=== PATIENT | male | born 1975 | race Caucasian/White ===

== ENCOUNTER 2019-04-15 11:54 | Outpatient (CLI) | payer OTHER, SELFPAY | END 2019-04-15 12:14 | PROVIDERS: PCP Student in an Organized Health Care Education/Training Program; Visit Provider Family Medicine | DX: R00.0 Tachycardia, unspecified (principal); R06.83 Snoring; Z87.898 Personal history of other specified conditions | CPT/HCPCS: 94762 ==

== ENCOUNTER 2019-04-16 01:06 | Outpatient (CLI) | payer OTHER, SELFPAY | END 2019-04-16 01:26 | PROVIDERS: PCP Student in an Organized Health Care Education/Training Program; Visit Provider Student in an Organized Health Care Education/Training Program | DX: R00.0 Tachycardia, unspecified (principal) | CPT/HCPCS: 93225 ==

== ENCOUNTER 2019-04-19 06:21 | Outpatient (CLI) | payer OTHER, SELFPAY | END 2019-04-19 06:41 | PROVIDERS: PCP Student in an Organized Health Care Education/Training Program; Visit Provider Student in an Organized Health Care Education/Training Program | DX: R00.0 Tachycardia, unspecified (principal) ==

== ENCOUNTER 2019-04-19 08:20 | Outpatient (CLI) | payer OTHER, SELFPAY ==
--- NOTE | 2019-04-19 09:26 | W.HOLTRPT ---
Date of service: 04/19/19 Time of Service: 09:26 Holter Monitor Report Holter Monitor Note: There is a 2-day Holter monitor ordered for the indication of tachycardia. ?Patient was in normal sinus rhythm for majority of the recording. (Minimum heart rate 66 bpm?maximal heart rate 138 bpm) ?The patient's heart rate was over 100 bpm 32% of the time and appropriately decreased during the nocturnal hours. ?There were no episodes of supraventricular tachycardia and no significant premature atrial contractions. ?There were no episodes of ventricular tachycardia and one single ventricular ectopic beat. ?There are no episodes of atrial fibrillation no pauses greater than 3 seconds and no evidence of high degree heart block.
== END 2019-04-19 08:40 ==
PROVIDERS: PCP Student in an Organized Health Care Education/Training Program; Visit Provider Student in an Organized Health Care Education/Training Program
DX: R00.0 Tachycardia, unspecified (principal)
CPT/HCPCS: 93226

== ENCOUNTER 2019-04-22 08:30 | Outpatient (CLI) | payer OTHER, SELFPAY | END 2019-04-22 08:50 | PROVIDERS: PCP Student in an Organized Health Care Education/Training Program; Visit Provider Internal Medicine Cardiovascular Disease | DX: R00.0 Tachycardia, unspecified (principal); R07.89 Other chest pain | CPT/HCPCS: 93005; 93010 ==

== ENCOUNTER 2019-04-23 12:58 | Outpatient (CLI) | payer OTHER, SELFPAY ==
--- NOTE | 2019-05-11 08:29 | W.ZIOMONITOR ---
Date of service: 05/11/19 Time of Service: 08:29 [facility]IO Patch [facility] Operations Supervisor Note: This was a ZIO patch recorded for 13 days and 15 hours. Rhythm throughout was sinus. Average heart rate was 87 bpm. Minimum heart rate was 50 and maximum 162. There were very rare atrial and ventricular ectopic beats Patient symptoms corresponded to sinus tachycardia and PVCs
== END 2019-04-23 13:18 ==
PROVIDERS: PCP Student in an Organized Health Care Education/Training Program; Visit Provider Internal Medicine Cardiovascular Disease
DX: R07.89 Other chest pain (principal); R00.2 Palpitations
CPT/HCPCS: 0296T

== ENCOUNTER 2019-12-02 09:44 | Outpatient (REF) | payer OTHER, SELFPAY ==
[2019-12-02 20:23] LABS: COVID-19 RT-PCR UVMMC Result Negative (Negative)
== END 2019-12-02 10:04 ==
LOC: LBO 09:44
PROVIDERS: PCP Student in an Organized Health Care Education/Training Program; Visit Provider Nurse Practitioner Family
DX: Z11.59 Encounter for screening for other viral diseases (principal)
CPT/HCPCS: U0003

== ENCOUNTER 2019-12-10 15:21 | Outpatient (REF) | payer OTHER, SELFPAY ==
[2019-12-10 15:39] LABS: Abs Immature Grans 0.11 10^3/uL (0.0-0.06); Absolute Basophil Count 0.08 10^3/uL (0.0-0.2); Absolute Eosinophil Count 0.13 10^3/uL (0.0-0.7); Absolute Lymphocyte Count 1.72 10^3/uL (1.2-3.4); Absolute Monocyte Count 0.64 10^3/uL (0.1-0.8); Absolute Neutrophil Count 5.03 10^3/uL (1.2-6.7); Eosinophils % 1.7; HGB 15.4 g/dL (13.5-17.5); Immature Grans % 1.4; Lymphocytes % 22.3; MCH 29.1 pg (27.0-33.0); MPV 9.8 fL (8.0-11.0); Monocytes % 8.3; Neutrophils % 65.3; Nucleated RBC 0 %; Platelet Count 405 10^3/uL (130-400); RDW 12.5 % (11.8-14.1); RDW-SD 37.8 fL; WBC 7.71 10^3/uL (4.4-10.8)
[2019-12-10 15:56] LABS: ALT 60 U/L (16-63); AST 30 U/L (15-37); Albumin 4.5 g/dL (3.4-5.0); Alkaline Phosphatase 91 U/L (46-116); Anion Gap 9.5 mmol/L (3-11); BUN 24 mg/dL (7-18); Bilirubin, Total 0.5 mg/dL (0.2-1.0); C-Reactive Protein 0.31 mg/dL (0.0-0.3); CO2 26.5 mmol/L (21.0-32.0); CREATININE 1.14 mg/dL (0.70-1.30); Calcium 9.1 mg/dL (8.5-10.1); Chloride 103 mmol/L (98-107); Glucose 80 mg/dL (74-106); Magnesium 2.2 mg/dL (1.8-2.4); Potassium 4.1 mmol/L (3.5-5.1); Sodium 139 mmol/L (136-145); Total Protein 7.2 g/dL (6.4-8.2); Uric Acid 7.2 mg/dL (3.5-7.2)
[2019-12-10 16:16] LABS: ESR 13 mm/hr (0-15)
[2019-12-10 21:00] LABS: Creatine Kinase 147 U/L (39-308)
[2019-12-14 20:07] LABS: Anaplasma phagocytophilum Negative (Negative); B. miyamotoi PCR Negative (Negative); Babesia divergens/MO-1 Negative (Negative); Babesia duncani Negative (Negative); Babesia microti Negative (Negative); Ehrlichia chaffeensis Negative (Negative); Ehrlichia ewingii/canis Negative (Negative); Ehrlichia muris eauclairensis Negative (Negative)
[2019-12-15 13:02] LABS: Lyme Ab w Rflx to Lyme Confirm Negative (Negative)
== END 2019-12-10 15:41 ==
LOC: LBN 15:21
PROVIDERS: PCP Student in an Organized Health Care Education/Training Program; Visit Provider Student in an Organized Health Care Education/Training Program
DX: E86.0 Dehydration (principal); M25.649 Stiffness of unspecified hand, not elsewhere classified; M79.10 Myalgia, unspecified site; M06.9 Rheumatoid arthritis, unspecified; K29.70 Gastritis, unspecified, without bleeding
CPT/HCPCS: 80053; 82550; 85652; 87798; 83735; 84550; 85025; 86140; 86618